=== PATIENT | female | born 1955 | race Caucasian/White ===

== ENCOUNTER 2023-03-31 12:57 | Outpatient (CLI) | payer MEDICARE, BC | END 2023-03-31 12:58 | disposition home or self-care (01) | LOC: CSHRAD 12:57 | PROVIDERS: ATTEND Neurological Surgery | DX: M50.30 Other cervical disc degeneration, unspecified cervical region (principal); M51.36 Other intervertebral disc degeneration, lumbar region; M47.812 Spondylosis without myelopathy or radiculopathy, cervical region; M47.816 Spondylosis without myelopathy or radiculopathy, lumbar region | CPT/HCPCS: 72040; 72100 ==

== ENCOUNTER 2023-10-13 09:41 | Outpatient (CLI) | payer MEDICARE | END 2023-10-13 09:42 | disposition home or self-care (01) | LOC: CSHULT 09:41 | PROVIDERS: ATTEND Psychiatry & Neurology Neurology | DX: R20.2 Paresthesia of skin (principal) | CPT/HCPCS: 93923 ==